=== PATIENT | female | born 1990 | race American Indian/Alaskan Native ===

== ENCOUNTER 2019-07-15 21:12 | Inpatient (IN) | payer MEDICAID, OTHER ==
[2019-07-15] MEDS ORDERED: METOCLOPRAMIDE 10 MG/2 ML INJ IV ONE (21:14)
[2019-07-15] MEDS ORDERED: BICITRA ORAL LIQD 30ML PO ONE (21:14)
[2019-07-15] MEDS ORDERED: FAMOTIDINE 20 MG/2 ML INJ IV ONE (21:14)
--- NOTE | 2019-07-15 21:47 | History and Physical Report ---
History of Present Illness Date of examination: 07/15/19 Date of admission: 07/15/19 21:12 Chief complaint: SROM @ 2030, prev c/s x 2 History of present illness: EDC Calculations by LMP: 08/04/2019 Past History : 5 Term Births: 1 Premature Births: 1 Living Children: 3 Para: 1 Mult. Births: 0 Prev : 2 Prev. attempt? 0 Aborta: 1 Elect. Ab: 1 Spont. Ab: 0 Ectopics: 0 # 1 Delivery date: 2008 Weeks Gestation: 40 Delivery type: Infant Sex: Male weight: 6-7 Comments: IOL # 2 Delivery date: 2013 Weeks Gestation: 38 labor: no Delivery type: Infant Sex: Female weight: 6-0 Comments: distress # 3 Delivery date: 2016 Weeks Gestation: 36 labor: yes Delivery type: Infant Sex: Female weight: 4-8 Comments: distress, PIH Risk Factors: Smoked Tobacco Use: Never smoker Smokeless Tobacco Use: Never Passive smoke exposure: no Drug use: no HIV high-risk behavior: no Caffeine use: 0 drinks per day Alcohol use: no Exercise: no Seatbelt use: preg-general counselor % Dietary Counseling: pn yes Past Medical History: Elevated BP with pushing with last Past Surgical History: C/S x 2 Family History Summary: Mother (biol.) - Has Family History of Hypertension - Entered On: 02/27/2019 MGM - Has Family History of Hypertension - Entered On: 02/27/2019 Brother (full) - Has Family History of Hypertension - Entered On: 02/27/2019 Social History: Patient is single Smoking History: Patient has never smoked. Past Medical History Surgery (Non-rn gynecology): C/S x 2 Abnormal PAP: negative SOLIS Exposure: negative Infertility: negative Uterine Anomaly: negative Uterine Surgery (not C/S): negative Other Gynecologic Problems: negative Social Hx: Patient is single Smoking History: Patient has never smoked. Infection History Hx of STD: none HIV Risk Eval: no Hepatitis B Risk Eval: low risk Personal hx. of genital herpes: no Partner hx. of genital herpes: no Rash, Viral, or Febrile illness since last LMP? no Varicella/Chicken Pox Status: Previous Disease TB Risk: no Genetic History Congenital Heart Defect: Mom: no Dad: no Ada Disease: Mom: no Dad: no Thalassemia Mom: no Dad: no Neural Tube Defect Mom: no Dad: no Down's Syndrome Mom: no Dad: no Alistair-Sachs Mom: no Dad: no Sickle Cell Disease/Trait Mom: no Dad: no Hemophilia Mom: no Dad: no Muscular Dystrophy Mom: no Dad: no Cystic Fibrosis Mom: no Dad: no [place] Chorea Mom: no Dad: no Mental Retardation Mom: no Dad: no Fragile X Mom: no Dad: no Other Genetic/Chromosomal Disorder Mom: no Dad: no Child w/other defect Mom: no Dad: no Enviromental Exposures Enviromental Exposures Reviewed Xray Exposure: no Medication, drug, or alcohol use since LMP: no Chemical/Other Exposure: no Exposure to Cat Liter: no Hx of Parvovirus (Fifth Disease): no Occupational Exposure to Children: none Active Medications (reviewed today): None Current Allergies (reviewed today): No known allergies Past History Past Medical History: other (s) Past Surgical History: other (s) BANQUET LEAD History: other (s) Family/Genetic History: other (see HPI) - Obstetrical History Expected Date of Delivery: 08/04/19 Actual Gestation: 37 Week(s) 2 Day(s) : 5 Para: 3 Hx # Term Pregnancies: 2 Number of Pregnancies: 1 Spontaneous Abortions: 0 Induced : 1 Number of Living Children: 3 Medications and Allergies Allergies Allergy/AdvReac Type Severity Reaction Status Date / Time No Known Allergies Allergy Verified 07/15/19 21:28 Home Medications Medication Instructions Recorded Confirmed Last Taken Type Ferrous Sulfate [Feosol 325 MG tab] 325 mg PO BID #60 tablet 07/16/19 Unknown Rx Ibuprofen [Motrin 800 MG tab] 800 mg PO Q6H PRN #30 tablet 07/16/19 Unknown Rx oxyCODONE /ACETAMINOPHEN [Percocet 1 - 2 tab PO Q4H PRN #30 tablet 07/16/19 Unknown Rx 5/325 mg] Active Meds: Active Medications Citric Acid/Sodium Citrate (Bicitra) 30 ml PO ONCE ONE Stop: 07/15/19 21:15 Famotidine (Pepcid) 20 mg IV ONCE ONE Stop: 07/15/19 21:15 Oxytocin/Sodium Chloride (Pitocin/Ns 20 Unit/1000ml Drip) 20 units in 1,000 mls @ 0 mls/hr IV TITR MANFRED Lactated Ringer's (Lactated Ringers) 1,000 mls @ 2,250 mls/hr IV PREOP MANFRED Stop: 07/16/19 22:27 Cefazolin Sodium (Ancef/Sterile Water 2 Gm/20 Ml) 2 gm in 20 mls @ 80 mls/hr IV PREOP NR; Protocol Metoclopramide HCl (Reglan) 10 mg IV ONCE ONE Stop: 07/15/19 21:15 Review of Systems All systems: negative - Vital Signs Vital signs: Vital Signs Pulse Pulse Ox 89 99 07/15/19 21:33 07/15/19 21:33 Temp Pulse Resp BP Pulse Ox 108 H 99 07/15/19 21:38 07/15/19 21:38 - Physical Exam Lungs: Positive: Normal air movement Results Result Diagrams: 07/15/19 21:50 All other labs normal. Assessment and Plan 29y/o @ 37+1, hx prev c/s x 2 presented to [facility] with gross SROM and nonreassuring FHT. Plan to urgently proceed with repeat c/s. Pt signed tubal consent 07/10/19. Admission orders in EMR. 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
--- NOTE | 2019-07-15 21:55 | Anesthesia Consultation ---
Anesthesia Consult and Med Hx Date of service: 07/15/19 - Airway Anesthetic Teeth Evaluation: Good ROM Head & Neck: Adequate Mental/Hyoid Distance: Adequate Mallampati Class: Class II Intubation Access Assessment: Good - Pulmonary Exam CTA: Yes - Cardiac Exam Cardiac Exam: RRR - Pre-Operative Health Status ASA Pre-Surgery Classification: ASA2, Emergency Proposed Anesthetic Plan: Spinal - Pulmonary Hx Asthma: No - Cardiovascular System Hx Hypertension: No - Central Nervous System Hx Seizures: No Hx Psychiatric Problems: No - Endocrine Hx Renal Disease: No Hx Hypothyroidism: No Hx Hyperthyroidism: No - Hematic Hx Anemia: No - Other Systems Hx Alcohol Use: No
--- NOTE | 2019-07-15 21:56 | Anesthesia Day of Surgery ---
Anesthesia Day of Surgery - Day of Surgery Patient Examined: Yes Patient H&P Reviewed: Yes Patient is NPO: No (full meal at 1900)
[2019-07-15] MEDS ORDERED: ceFAZolin/Water 2 GM/20 ML 2 GM/20 ML SYRINGE IV NR (22:00)
[2019-07-15] MEDS ORDERED: LACTATED RINGERS 1,000 ML IV SCH (22:00)
[2019-07-15] MEDS ORDERED: OXYTOCIN 20 UNIT/1000ML DRIP 20 UNITS/1,000 ML BAG IV SCH (22:00)
[2019-07-15 22:06] LABS: Basophils # (Auto) 0.1 K/mm3 (0.0-0.1); Basophils % (Auto) 0.7 % (0.0-1.8); Eosinophils # (Auto) 0.1 K/mm3 (0.0-0.4); Eosinophils % (Auto) 0.8 % (0.0-4.3); Hematocrit 40.3 % (30.3-42.9); Hemoglobin 13.4 gm/dl (10.1-14.3); Lymphocytes # (Auto) 1.9 K/mm3 (1.2-5.4); Mean Corpuscular HGB Conc 33 % (30-34); Mean Corpuscular Volume 104 fl (79-97); Monocytes # (Auto) 0.8 K/mm3 (0.0-0.8); Monocytes % (Auto) 5.9 % (0.0-7.3); Platelet Count 200 K/mm3 (140-440); Red Cell Distribution Width 13.3 % (13.2-15.2)
[2019-07-15] MEDS ORDERED: KETAMINE/STERILE WATER 50 MG/ML SYRINGE ONE (22:20)
[2019-07-15] MEDS ORDERED: MIDAZOLAM 5 MG/5 ML INJ MDV IV ONE (22:23)
[2019-07-15] MEDS ORDERED: fentaNYL 100 MCG/2 ML INJ ONE (22:29)
[2019-07-15] MEDS ORDERED: SUCCINYLCHOLINE CHLORIDE 200 MG/10 ML INJ MDV ONE (22:30)
[2019-07-15] MEDS ORDERED: PROPOFOL 200 MG/20 ML VIAL IV ONE (22:30)
[2019-07-15] MEDS ORDERED: DEXMEDETOMIDINE 200 MCG/2 ML VIAL IV ONE (22:31)
[2019-07-15] MEDS ORDERED: SODIUM CHLORIDE 0.9% 1000 ML 1,000 ML ONE (22:31)
[2019-07-15] MEDS ORDERED: KETOROLAC 30 MG/1 ML INJ ONE (22:31)
[2019-07-15] MEDS ORDERED: ONDANSETRON 4 MG/2 ML INJ ONE (22:31)
[2019-07-15] MEDS ORDERED: NEOSTIGMINE 10MG/10 ML INJ MDV ONE (22:45)
[2019-07-15] MEDS ORDERED: GLYCOPYRROLATE 0.4 MG/2 ML INJ ONE (22:45)
[2019-07-15] MEDS ORDERED: HYDROmorphone 1 MG/1 ML INJ ONE (22:48)
--- NOTE | 2019-07-15 23:46 | Operative Report ---
Operative Report Operative Report: Date of procedure: 07/15/2019 Pre-operative diagnosis: Intrauterine at 37 weeks with premature rupture of membranes and nonreassuring heart rate. With a history of previous section and desires permanent sterilization Post-operative diagnosis: Same Procedure name(s): Stat repeat low transverse section with bilateral salpingectomy Surgeon: Ricco Rios MD [employer] Card Collection Clerk: Anesthesia: Gen. EBL: 600 mL Complications: None Findings: Adhesions between anterior abdominal wall and anterior uterus. . With normal fallopian tubes. Female weight 5 lbs. 10 oz. Apgars 8 at 1 minute 9 at 5 minutes Indications: Patient presented to labor and liver complaints of ruptured membranes. tracing revealed recurrent late decelerations. I arrived patient was in the operating room awake and discussed with the patient ind ications for procedure and discussed with patient her desire for permanent sterilization. Patient states she desired to have sterilization even if poor outcome of this infant being delivered on the distress Specimen(s): Procedure: The patient was brought to the operating room in a stat fashion. She was then placed in left lateral tilt. Prepped and draped in the usual sterile manner. Gen. anesthesia was induced without difficulty. A Pfannenstiel incision was made through previous scar. This incision was taken down to the fascia. The fascia was then nicked in the midline. This incision was extended out laterally with Salomon scissors. The fascia was then sharply and bluntly from the underlying rectus muscles through thick scarring. The rectus muscles were bluntly and sharply . The peritoneum was then entered with the dredge lever operator's fingers. This incision was spread vertically with care not to damage the bladder below. Bladder blade was placed. The bladder flap was then formed sharply and bluntly with Metzenbaum scissors. Bladder blade replaced. A transverse incision was made in lower uterine segment. This incision was extended laterally with the operators fingers. The amniotic sac was then entered bluntly with the dredge lever operator's fingers. The was delivered from the vertex position. Bulb suction on the mother's abdomen. Cord was double clamped and cut. The was then passed to the nursery personnel who were in attendance. The above scores were given by the nursery personnel. The placenta was then bluntly removed. The uterus was then externalized and wiped clean the remaining products. The uterine incision was closed in layers. The first incision was closed in a locking manner using 0 Vicryl. This was followed by imbricating stitch also with 0 Vicryl. This closure was hemostatic. Attention was then switched to the patient's fallopian tubes. Each fallopian tube was identified by its fimbriated end. The distal and of the right fallopian tube was grabbed with the Josh clamp. The adhesions were taken down sharply second Josh was placed approximately 2 cm from the cornua. The meso salpinx on the dissection to was cauterized with the Bovie and the proximal in was transected with the Bovie. The tube was removed the remaining mesosalpinx was hemostatic. The same procedure was performed on the patient's left fallopian tube. Good hemostasis was obtained after delivery sutures placed along the mesosalpinx and the left ovary. Attention was then switched back to the uterine closure. Additional [id number] sutures were placed .The bladder flap was copiously irrigated and found to be hemostatic. The pelvis was copiously irrigated and found to be hemostatic. The uterus was then placed back to the patient's abdomen. Surgicel was placed along the uterine closure for good hemostasis. The retractors were removed. The rectus muscles were inspected and found to be hemostatic. The fascia was then closed in a running manner using 0 Vicryl. This incision was hemostatic irrigation Bovie. The skin was reapproximated with 4-0 Vicryl subcuticularly. Dermabond was placed along this skin closure.The patient tolerated procedure well. Her urine was clear. The infant was admitted to the well baby nursery. The patient was accompanied to recovery room in good condition. Instrument count correct 3.
[2019-07-15] MEDS ORDERED: dexAMETHasone 20 MG/5 ML VIAL ONE (23:50)
[2019-07-15] MEDS ORDERED: SODIUM CHLORIDE 0.9% 100 ML ONE (23:50)
[2019-07-15] MEDS ORDERED: BUPIVACAINE/PF (0.5%) 5 MG/1 ML 30 ML VIAL INFILTRATI ONE (23:50)
[2019-07-15] MEDS ORDERED: KETOROLAC 30 MG/1 ML INJ IV PRN (23:52)
[2019-07-15] MEDS ORDERED: ONDANSETRON 4 MG/2 ML INJ IV PRN (23:52)
[2019-07-15] MEDS ORDERED: MORPHINE 2 MG/1 ML INJ IV PRN (23:52)
[2019-07-15] MEDS ORDERED: MEPERIDINE 25 MG/1 ML INJ IV PRN (23:52)
[2019-07-15] MEDS ORDERED: HYDROmorphone 1 MG/1 ML INJ IV PRN (23:52)
--- NOTE | 2019-07-15 23:55 | Post Anesthesia Evaluation ---
- Post Anesthesia Evaluation Patient Participated: Yes Airway Patent: Yes Stable Respiratory Function: Yes Nausea/Vomiting: No Temp > 96.8F: Yes Pain Manageable: Yes Adequeate Hydration: Yes Anesthesia Complications: No Patient on Ventilator: No
[2019-07-16] MEDS ORDERED: NALOXONE 0.4 MG/1 ML INJ IV PRN (03:17)
[2019-07-16] MEDS ORDERED: OXYTOCIN 20 UNIT/1000ML DRIP 20 UNITS/1,000 ML BAG IV SCH (03:17)
[2019-07-16] MEDS ORDERED: WITCH HAZEL/ GLYCERIN PAD TP PRN (03:17)
[2019-07-16] MEDS ORDERED: LANOLIN/ZINC/DIMETHICONE (LANSINOH) 7 GM TP PRN (03:17)
[2019-07-16] MEDS ORDERED: D5W/LACTATED RINGERS 1,000 ML IV SCH (03:17)
[2019-07-16] MEDS ORDERED: OXYTOCIN 20 UNIT/1000ML DRIP 20,000 MILLIUNITS/1,000 ML BAG IV ONE (03:49)
[2019-07-16] MEDS: KETOROLAC 30 MG/1 ML INJ IV SCH ×4 (05:05→23:52)
[2019-07-16] MEDS: ceFAZolin/NS 1 GM/50 ML 1 GM/50 ML BAG IV SCH ×2 (05:05→13:54)
[2019-07-16] MEDS: HYDROcodone/ACETAMINOPHEN 5-325 MG TAB PO PRN ×2 (08:25→21:05)
[2019-07-16] MEDS: FERROUS SULFATE 325 MG TAB PO SCH (09:57)
[2019-07-16] MEDS: PRENATAL VIT27-FE FUMARATE-FOLIC ACID VIT TAB PO SCH (09:57)
--- NOTE | 2019-07-16 11:56 | Progress Note ---
Assessment and Plan patient doing well, bottle feeding infant. VSSAF, H&H not yet drawn, no s/s anemia. Eason recently removed, has not yet voided. incision D&I. Lochia scant. fundus firm. - Patient Problems (1) delivery delivered Current Visit: Yes Status: Acute Plan to address problem: continue postop pathway advance activity and diet as tolerated. Subjective - Subjective Date of service: 07/16/19 Principal diagnosis: posop day #1 s/p repeat c/s Interval history: EDC Calculations by LMP: 08/04/2019 Past History : 5 Term Births: 1 Premature Births: 1 Living Children: 3 Para: 1 Mult. Births: 0 Prev : 2 Prev. attempt? 0 Aborta: 1 Elect. Ab: 1 Spont. Ab: 0 Ectopics: 0 # 1 Delivery date: 2008 Weeks Gestation: 40 Delivery type: Infant Sex: Male weight: 6-7 Comments: IOL # 2 Delivery date: 2013 Weeks Gestation: 38 labor: no Delivery type: Infant Sex: Female weight: 6-0 Comments: distress # 3 Delivery date: 2017 Weeks Gestation: 36 labor: yes Delivery type: Sex: Female weight: 4-8 Comments: distress, PIH Risk Factors: Smoked Tobacco Use: Never smoker Smokeless Tobacco Use: Never Passive smoke exposure: no Drug use: no HIV high-risk behavior: no Caffeine use: 0 drinks per day Alcohol use: no Exercise: no Seatbelt use: preg-grief counsellor % Dietary Counseling: pn yes Past Medical History: Elevated BP with pushing with last Past Surgical History: C/S x 2 Family History Summary: Mother (biol.) - Has Family History of Hypertension - Entered On: 02/27/2019 MGM - Has Family History of Hypertension - Entered On: 02/27/2019 Brother (full) - Has Family History of Hypertension - Entered On: 02/27/2019 Social History: Patient is single Smoking History: Patient has never smoked. Past Medical History Surgery (Non-production material handler): C/S x 2 Abnormal PAP: negative SOLIS Exposure: negative Infertility: negative Uterine Anomaly: negative Uterine Surgery (not C/S): negative Other Gynecologic Problems: negative Social Hx: Patient is single Smoking History: Patient has never smoked. Infection History Hx of STD: none HIV Risk Eval: no Hepatitis B Risk Eval: low risk Personal hx. of genital herpes: no Partner hx. of genital herpes: no Rash, Viral, or Febrile illness since last LMP? no Varicella/Chicken Pox Status: Previous Disease TB Risk: no Genetic History Congenital Heart Defect: Mom: no Dad: no Ada Disease: Mom: no Dad: no Thalassemia Mom: no Dad: no Neural Tube Defect Mom: no Dad: no Down's Syndrome Mom: no Dad: no Alistair-Sachs Mom: no Dad: no Sickle Cell Disease/Trait Mom: no Dad: no Hemophilia Mom: no Dad: no Muscular Dystrophy Mom: no Dad: no Cystic Fibrosis Mom: no Dad: no [place] Chorea Mom: no Dad: no Mental Retardation Mom: no Dad: no Fragile X Mom: no Dad: no Other Genetic/Chromosomal Disorder Mom: no Dad: no Child w/other defect Mom: no Dad: no Enviromental Exposures Enviromental Exposures Reviewed Xray Exposure: no Medication, drug, or alcohol use since LMP: no Chemical/Other Exposure: no Exposure to Cat Liter: no Hx of Parvovirus (Fifth Disease): no Occupational Exposure to Children: none Active Medications (reviewed today): None Current Allergies (reviewed today): No known allergies Patient reports: pain well controlled, no flatus, no nauseated [place]: doing well, bottle feeding Objective - Vital Signs Latest vital signs: Vital Signs Temp Pulse Resp BP BP Pulse Ox 07/16/19 08:10 99.1 F 64 20 114/60 95 07/16/19 02:32 98.7 F 71 21 134/77 95 07/15/19 21:46 94 H 98 07/15/19 21:38 108 H 99 07/15/19 21:33 89 99 Intake and Output 07/15/19 07/16/19 07/16/19 23:59 07:59 15:59 Intake Total 480 Output Total 900 Balance -420 Intake: Oral 480 Output: Urine 900 Indwelling Catheter 900 Other: Total, Intake Amount 360 Total, Output Amount 900 Weight 73.482 kg - Exam Breasts: Present: normal Cardiovascular: Present: Regular rate Lungs: Present: Clear to auscultation, Normal air movement Abdomen: Present: normal appearance, soft Vulva: both: normal Uterus: Present: normal Extremities: Present: normal Deep Tendon Reflex Grade: Normal +2 Incision: Present: normal, dry, intact - Labs Labs: Abnormal lab results 07/15/19 Range/Units 21:50 WBC 13.8 H (4.5-11.0) K/mm3 MCV 104 H (79-97) fl MCH 35 H (28-32) pg Seg Neutrophils % 78.6 H (40.0-70.0) % Seg Neutrophils # 10.8 H (1.8-7.7) K/mm3
[2019-07-16 12:31] LABS: Hematocrit 33.5 % (30.3-42.9); Hemoglobin 11.4 gm/dl (10.1-14.3)
[2019-07-17] MEDS: HYDROcodone/ACETAMINOPHEN 5-325 MG TAB PO PRN ×4 (04:15→18:30)
[2019-07-17] MEDS: KETOROLAC 30 MG/1 ML INJ IV SCH (05:51)
[2019-07-17] MEDS ORDERED: TETANUS,DIPH,PERTUSS(ACELL) VACCINE 0.5 ML SYRINGE IM ONE (06:00)
[2019-07-17] MEDS ORDERED: IBUPROFEN 800 MG TAB PO PRN (06:00)
--- NOTE | 2019-07-17 07:24 | Discharge Summary ---
Providers - Providers Date of Admission: 07/15/19 21:12 Date of discharge: 07/17/19 (Pt agrees to discharge) Attending physician: LUKE GUPTA 07/16/19 03:17 Consult to Dairy Clerk [CONS] Routine Reason For Exam: Primary care physician: LUKE GUPTA Hospitalization Reason for admission: section, rupture of membranes Delivery: Procedure: section, bilateral tubal ligation, repeat low transverse Episiotomy: none Laceration: none Incision: normal, dry, intact complications: none Discharge diagnosis: IUP at term delivered [place] baby: female Hospital course: Uncomplicated Repeat low transverse section with bilateral tubal ligation. S: Pt states that she is doing well at this time. No c/o pain. States that she is voiding, passing gas and ambulating without difficulty. O: VSS, H/H . Observed feeding baby and sitting up in bed and appears to be in no s/s of distress. Incision to lower abdomen intact, dry, no drainage noted. A: 29 y.o. Low transverse , repeat with BTL due to SROM. P: D/C home today. Will return to clinic in 1 weeks for incision check. Take all medications at prescribed. Keep incision clean by gently cleaning with mild soap and patting dry. Condition at discharge: Good Disposition: [id number] TO HOME OR SELFCARE - Discharge Diagnoses (1) delivery delivered Status: Acute Comment: RTO in 1 weeks for incision check. Plan - Discharge Medications Prescriptions: Ferrous Sulfate [Feosol 325 MG tab] 325 mg PO BID #60 tablet Ibuprofen [Motrin 800 MG tab] 800 mg PO Q6H PRN #30 tablet PRN Reason: Pain oxyCODONE /ACETAMINOPHEN [Percocet 5/325 mg] 1 - 2 tab PO Q4H PRN #30 tablet PRN Reason: Pain, Moderate - Provider Discharge Summary Activity: routine, no sex for 6 weeks, no heavy lifting 4 weeks, no strenuous exercise Diet: routine Instructions: routine Additional instructions: [] Smoking cessation referral if applicable(refer to patient education folder for contact #) [] Refer to [facility] Booklet Call your doctor immediately for: * Fever > 100.5 * Heavy vaginal bleeding ( >1 pad per hour) * Severe persistent headache * Shortness of breath * Reddened, hot, painful area to leg or breast * Drainage or odor from incision. * Keep incision clean and dry at all times and follow doctor's instructions regarding bathing/showering - Follow up plan Follow up: LUKE GUPTA MD [Primary Care Provider] - 7 Days (Congratulations!!! Schedule office visit in 1 weeks for an incision check. Take all medications as prescribed. Call the office with any questions or concerns. [address] [facility], [address] )
[2019-07-17] MEDS: FERROUS SULFATE 325 MG TAB PO SCH (10:07)
[2019-07-17] MEDS: PRENATAL VIT27-FE FUMARATE-FOLIC ACID VIT TAB PO SCH (10:07)
[2019-07-17] MEDS ORDERED: FLU VACC QUAD 2019-20 (3 YR UP)/PF 60 MCG/0.5 ML SYRINGE IM ONE (12:00)
[2019-07-17 17:03] VITALS: BP 123/76
== END 2019-07-17 23:15 | disposition home or self-care (01) | DRG 766 ==
LOC: APU 21:12 → OB 07-16 02:29
PROVIDERS: ADMIT Obstetrics & Gynecology; ATTEND Obstetrics & Gynecology
PROC: 10D00Z1 Extraction of Products of Conception, Low, Open Approach (ICD-10-PCS; principal; 2019-07-15)
PROC: 0UB70ZZ Excision of Bilateral Fallopian Tubes, Open Approach (ICD-10-PCS; 2019-07-15)
PROC: 3E0234Z Introduction of Serum, Toxoid and Vaccine into Muscle, Percutaneous Approach (ICD-10-PCS; 2019-07-17)
DX: O34.211 Maternal care for low transverse scar from previous cesarean delivery (principal); O99.824 Streptococcus B carrier state complicating childbirth; O76 Abnormality in fetal heart rate and rhythm complicating labor and delivery; O42.92 Full-term premature rupture of membranes, unspecified as to length of time between rupture and onset of labor; Z37.0 Single live birth; Z82.49 Family history of ischemic heart disease and other diseases of the circulatory system; Z3A.37 37 weeks gestation of pregnancy; Z79.899 Other long term (current) drug therapy; Z30.2 Encounter for sterilization; Z23 Encounter for immunization
CPT/HCPCS: 36415; 59025; 85014; 85018; 85025; 86592; 86850; 86900; 86901; 88302; 90471; 90686; 90715; G0378; G0008; J0330; J0690; J1100; J1170; J1885; J2250; J2405; J2590; J2704; J2710; J2765; J3010; J3490; J7030; J7120; Q0177

== ENCOUNTER 2019-11-12 02:45 | Emergency (ER) | payer MEDICAID ==
[2019-11-12] MEDS ORDERED: HYDROcodone/ACETAMINOPHEN 5-325 MG TAB PO ONE (04:26)
[2019-11-12] MEDS ORDERED: IBUPROFEN 600 MG TAB PO ONE (04:26)
[2019-11-12] MEDS ORDERED: CLINDAMYCIN 300 MG CAP PO ONE (04:26)
--- NOTE | 2019-11-12 04:26 | Emergency Department Report ---
HPI - General Chief Complaint: Dental/Oral Time Seen by Provider: 11/12/19 04:25 - HPI HPI: This is a 29-year-old female here report that she is having left tooth pain to upper back tooth. She said this started yesterday. She says she noted some facial swelling and she took some BC powder for pain but pain is still ongoing. Reports pain is 10/10 and throbbing. Denies any fever or chills. Denies any nausea or vomiting. Denies any nasal congestion. Denies any sore throat or drooling. Denies any difficulty swallowing. Denies any cough, congestion or runny nose. Denies any chest pain or shortness of breath. Denies any diarrhea. ED Past Medical Hx - Past Medical History Previous Medical History?: Yes Hx Hypertension: No Hx Diabetes: No Hx Deep Vein Thrombosis: No Hx Renal Disease: No Hx Sickle Cell Disease: No Hx Seizures: No Hx Asthma: No Hx HIV: No - Surgical History Past Surgical History?: Yes - Family History Family history: hypertension - Social History Smoking Status: Never Smoker Substance Use Type: None - Medications Home Medications: Home Medications Medication Instructions Recorded Confirmed Last Taken Type Ferrous Sulfate [Feosol 325 MG tab] 325 mg PO BID #60 tablet 07/16/19 Unknown Rx Ibuprofen [Motrin 800 MG tab] 800 mg PO Q6H PRN #30 tablet 07/16/19 Unknown Rx oxyCODONE /ACETAMINOPHEN [Percocet 1 - 2 tab PO Q4H PRN #30 tablet 07/16/19 Unknown Rx 5/325 mg] Acetaminophen/Codeine [Tylenol 1 tab PO Q6H PRN #14 tab 11/12/19 Unknown Rx /Codeine # 3 tab] Ibuprofen [Motrin] 600 mg PO Q8H PRN #12 tablet 11/12/19 Unknown Rx Penicillin V Potassium 500 mg PO Q8H 10 Days #30 tablet 11/12/19 Unknown Rx ED Review of Systems ROS: Stated complaint: TEETH PAIN Other details as noted in HPI Constitutional: denies: chills, fever Eyes: denies: eye discharge ENT: dental pain. denies: ear pain, throat pain, congestion Respiratory: denies: cough, shortness of breath, wheezing Cardiovascular: denies: chest pain, palpitations, edema, syncope Gastrointestinal: denies: nausea, vomiting Musculoskeletal: denies: back pain Skin: denies: rash Neurological: denies: headache Physical Exam - Physical Exam Vital Signs: Vital Signs 11/12/19 02:52 Temperature 100.0 F H Pulse Rate 87 Respiratory 16 Rate Blood Pressure 138/94 O2 Sat by Pulse 91 Oximetry General: This is a 29-year-old female well-nourished well-developed in no acute distress. Physical Exam: Head: Normocephalic atraumatic Ears:BIateral TM pearly shaffer . Dariusz EAC with normal exam. No mastoid bone tenderness. Mouth: Moist, no pharyngeal erythema or exudate . Tongue is normal and oral airways patent. Uvula is midline. Noted mild swelling with tenderness to palpate around tooth #13 through 15. Noted dental caries. Lip is normal. Neck: Nontender to palpate, supple, normal range of motion. No adenopathy. No c- spine tenderness. Nose: Bilateral nasal mucosa normal exam maxillary and frontal sinuses non- tender to palpate. Eyes: Bilateral Sclerae and conjunctiva without injection. Bilateral pupils equal and reactive to light. Bilateral lids are normal. Normal accommodation.BEOMI Lungs: Clear to auscultate bilaterally, no rhonchi wheezes or rales. Normal work of breathing and no chest wall tenderness CV: S1, S2. Regular rate and rhythm negative murmur. Capillary refill is less than 3 seconds Extremity: No clubbing, cyanosis or edema. +2 pulses in all extremities and no neurovascular compromise Skin: Clean dry and intact, no rashes or lesions ED Course Vital Signs 11/12/19 02:52 Temperature 100.0 F H Pulse Rate 87 Respiratory 16 Rate Blood Pressure 138/94 O2 Sat by Pulse 91 Oximetry - Reevaluation(s) Reevaluation #1: 11/12/19 04:56 Patient given Depauw 5/325 2 tablets, Motrin 600 mg p.o. and clindamycin 600 mg p.o. in emergency room for pain and to cover oral cellulitis. She is stable and upon reevaluation pain has subsided. ED Medical Decision Making - Medical Decision Making This is a 29-year-old female here for dental pain. She is found to have oral cellulitis and dental caries. Patient was given pain medication and started on antibiotic in emergency room and her pain has subsided. Vital signs are stable she is afebrile and patient discharged home in stable condition with prescription for penicillin, Motrin and Tylenol 3 Critical care attestation.: If time is entered above; I have spent that time in minutes in the direct care of this critically ill patient, excluding procedure time. ED Disposition Clinical Impression: Dental caries, Oral cellulitis Disposition: TO HOME OR SELFCARE Is pt being admited?: No Does the pt Need Aspirin: No Condition: Stable Instructions: Dental Abscess (ED), Dental Caries (ED) Additional Instructions: Please follow-up with [facility] dental clinic as instructed. Call on Wednesday to schedule an appointment to see dentist Take Motrin for mild to moderate pain. Take Tylenol 3 for severe pain and please not drive or operate heavy machinery while taking this medication as a cause drowsiness Take penicillin for dental abscess. If your condition worsens you will need to see a dentist but you can also come back to the emergency room. Referrals: [facility] [Outside] - 11/13/19 Forms: Work/School Release Form(ED)
[2019-11-12 04:59] VITALS: BP 129/98
== END 2019-11-12 05:05 | disposition home or self-care (01) ==
LOC: ED 02:45
DX: K02.9 Dental caries, unspecified (principal); L03.211 Cellulitis of face; Z79.899 Other long term (current) drug therapy
CPT/HCPCS: 99282

== ENCOUNTER 2022-03-30 08:56 | Emergency (ER) | payer MEDICAID ==
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
[2022-03-30] MEDS ORDERED: IBUPROFEN 800 MG TAB PO ONE (11:28)
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
[2022-03-30] MEDS ORDERED: HYDROcodone/ACETAMINOPHEN 10-325MG TAB PO ONE (11:53)
[2022-03-30 12:42] VITALS: BP 124/86
== END 2022-03-30 12:42 | disposition home or self-care (01) ==
LOC: ED 08:56
DX: S62.213A Bennett's fracture, unspecified hand, initial encounter for closed fracture (principal); X58.XXXA Exposure to other specified factors, initial encounter; Y93.89 Activity, other specified; Y92.89 Other specified places as the place of occurrence of the external cause; Y99.8 Other external cause status
CPT/HCPCS: 99283